=== PATIENT | female | born 1970 | race Caucasian/White ===

== ENCOUNTER 2016-12-04 23:21 | Emergency (ER) | payer BC ==
--- NOTE | 2016-12-05 00:10 | C.PDOC ---
History Of Present Illness <Jamison Serrato R - Last Filed: 12/05/16 01:13> <Brodie Meadows - Last Filed: 12/08/16 23:57> Patient is a 46 year old female who presents to the ER with a complaint of an acute episode of right facial droop, word finding difficulty and vertigo that lasted 5 minutes yesterday at 10 am while she was at work. Patient states the symptoms resolved themselves spontaneously and she resumed working. Patient has had mild vertigo since then. Patient denies a PMHx of HTN but does a Hx of polycythemia. Denies fever, chill, nausea or vomiting. (Brodie Meadows) <Jaimson Serrato R - Last Filed: 12/05/16 01:13> History Per: Patient History/Exam Limitations: no limitations Onset/Duration Of Symptoms: Mins Current Symptoms Are (Timing): Still Present Activity At Onset Of Symptoms: Other (At work) Possible Causative Factor(s): Other (Not known) Fall Associated With With Symptoms: No Recent travel outside of the [place]: No - Symptoms Of CVA Recent Aspirin Use: Unknown Current Coumadin Use?: Unknown <Brodie Meadows - Last Filed: 12/08/16 23:57> Time Seen by Provider: 12/04/16 23:49 Chief Complaint (Nursing): Dizziness/Lightheaded Past Medical History Reviewed: Historical Data, Nursing Documentation, Vital Signs - Medical History PMH: No Chronic Diseases Surgical History: No Surg Hx Family History: States: Unknown Family Hx - Social History Hx Alcohol Use: No Hx Substance Use: No <Brodie Meadows - Last Filed: 12/08/16 23:57> Vital Signs: Last Vital Signs Temp 97 F L 12/05/16 01:37 Pulse 92 H 12/05/16 01:37 Resp 20 12/05/16 01:37 BP 132/77 12/05/16 01:37 Pulse Ox 100 12/05/16 01:37 Review Of Systems Constitutional: Negative for: Fever, Chills Gastrointestinal: Negative for: Nausea, Vomiting Neurological: Positive for: Other (Right facial droop, difficulty word finding, vertigo) <Brodie Meadows - Last Filed: 12/08/16 23:57> Physical Exam - Physical Exam Appears: Well, Non-toxic, No Acute Distress Skin: Normal Color, Warm, Dry Head: Atraumatic, Normacephalic Eye(s): bilateral: Normal Inspection, PERRL, EOMI Oral Mucosa: Moist Neck: Normal, Supple Chest: Symmetrical, No Tenderness Cardiovascular: Rhythm Regular, No Murmur Respiratory: Normal Breath Sounds, No Rales, No Rhonchi, No Wheezing Gastrointestinal/Abdominal: Soft, No Tenderness Neurological/Psych: Oriented x3, Normal Speech, Normal Cognition, Normal Cranial Nerves, Normal Motor, Normal Sensation <Brodie Meadows - Last Filed: 12/08/16 23:57> ED Course And Treatment - Laboratory Results Result Diagrams: 12/05/16 00:18 12/05/16 00:18 <Jamison Serrato - Last Filed: 12/05/16 01:13> - Laboratory Results Result Diagrams: 12/05/16 00:18 12/05/16 00:18 Lab Interpretation: Abnormal (+ leukocytosis, + polycythemia) Urine POC: Negative ECG: Interpreted By Me ECG Rhythm: Sinus Rhythm ECG Interpretation: Normal Rate From EC O2 Sat by Pulse Oximetry: 98 (Room air) Pulse Ox Interpretation: Normal - CT Scan/US Ct head w/o contrast Other Rad Studies (CT/US): Read By Radiologist, Radiology Report Reviewed CT/US Interpretation: IMPRESSION: Normal head/brain CT. Progress Note: CT of head w/o contrast, EKG, blood work, CXR and urinalysis ordered. Trandate administered. Patient advised to stay for admission, refused to stay, will sign out AMA. Reevaluation Time: 00:38 Reassessment Condition: Improved (remains asymptomatic) <Brodie Meadows - Last Filed: 12/08/16 23:57> Medical Decision Making <Jamison Serrato - Last Filed: 12/05/16 01:13> <Brodie Meadows - Last Filed: 12/08/16 23:57> Medical Decision Making: consider sludging with h/o polycythemia or uncontrolled HTN Labetolol and IVF's given to start dilutional therapy consider theraputic phlebotomy. CT head pending tele obs overnight and MRI/Neuro consult in AM (Brodie Meadows) Disposition Counseled Patient/Family Regarding: Diagnosis - Disposition Disposition Time: 01:13 - POA Present On Arrival: None <Jamison Serrato - Last Filed: 12/05/16 01:13> <Brodie Meadows - Last Filed: 12/08/16 23:57> - Disposition Referrals: Florina Aguilar MD [Medical Doctor] - Disposition: AGAINST MEDICAL ADVICE Condition: STABLE Instructions: Transient Ischemic Attack (DC), Polycythemia Vera (GEN) - Clinical Impression Clinical Impression: TIA (transient ischemic attack), Polycythemia vera <Jamison Serrato - Last Filed: 12/05/16 01:13> - Scribe Statement The provider has reviewed the documentation as recorded by the Scribe <Brodie Meadows - Last Filed: 12/08/16 23:57> - Scribe Statement Marcos Bailon All medical record entries made by the Scribe were at my direction and personally dictated by me. I have reviewed the chart and agree that the record accurately reflects my personal performance of the history, physical exam, medical decision making, and the department course for this patient. I have also personally directed, reviewed, and agree with the discharge instructions and disposition. (Brodie Meadows)
[2016-12-05 00:29] LABS: CHLORIDE 97 mmol/L (98-107)
[2016-12-05 00:30] LABS: BASO # 0.1 K/uL (0.0-0.2); BASO % 0.6 % (0.0-2.0); EOS # 0.3 K/uL (0.0-0.7); EOS % 2.6 % (0.0-4.0); LYMPH # 2.2 K/uL (1.0-4.3); LYMPH % 17.2 % (20.0-40.0); MEAN CELL VOLUME 70.4 fL (81.0-99.0); MEAN CORPUSCULAR HEMOGLOBIN 22.9 pg (27.0-31.0); MEAN CORPUSCULAR HGB CONC 32.5 g/dL (33.0-37.0); MEAN PLATELET VOLUME 8.5 fL (7.2-11.7); MONO # 0.3 K/uL (0.0-0.8); MONO % 2.4 % (0.0-10.0); NRBC % 0.5 % (0.0-2.0); SODIUM 138 mmol/L (132-148); WHITE BLOOD COUNT 12.6 K/uL (4.8-10.8)
[2016-12-05 00:31] LABS: POTASSIUM 3.6 mmol/L (3.6-5.2)
[2016-12-05 00:32] LABS: RBC URINE 3 /hpf (0-3); URINE BACTERIA RARE (<OCC); URINE BILIRUBIN NEGATIVE (NEGATIVE); URINE BLOOD 2+ (NEGATIVE); URINE COLOR Straw (YELLOW); URINE GLUCOSE (UA) NORMAL (Normal); URINE KETONE NEGATIVE (NEGATIVE); URINE LEUKOCYTE ESTERASE NEG Leu/uL (Negative); URINE PROTEIN NEGATIVE (NEGATIVE); URINE UROBILINOGEN NORMAL mg/dL (0.2-1.0); WBC URINE 2 /hpf (0-5)
[2016-12-05 00:33] LABS: ALKALINE PHOSPHATASE 101 U/L (38-126); AST/SGOT 31 U/L (14-36); BLOOD UREA NITROGEN 18 mg/dL (7-17); CARBON DIOXIDE 30 mmol/L (22-30); CHOLESTEROL 117 mg/dL (0-199); GFR AFRICAN-AMERICAN > 60; GLUCOSE,RANDOM 94 mg/dL (65-105); TOTAL PROTEIN 8.5 g/dL (6.3-8.3)
[2016-12-05 00:34] LABS: ALB/GLOB RATIO 1.2 (1.0-2.1); ALT/SGPT 22 U/L (9-52); CALCIUM 9.2 mg/dl (8.6-10.4)
[2016-12-05 00:35] LABS: INR 1.3
[2016-12-05] MEDS ORDERED: Sodium Chloride 0.9% 1,000 ML IV ONE (00:36)
[2016-12-05 00:45] VITALS: RESP 20
[2016-12-05] MEDS ORDERED: Sodium Chloride 0.9% 1,000 ML ONE (00:47)
[2016-12-05 01:38] VITALS: BP 132/77; PULSE 92; TEMP 97
--- NOTE | 2016-12-05 11:19 | CT ---
PROCEDURE: CT HEAD WITHOUT CONTRAST. HISTORY: TIA today, R facial droop/vertigo, word finding COMPARISON: None available. TECHNIQUE: Axial computed tomography images were obtained through the head/brain without intravenous contrast. Radiation dose: Total exam DLP = 786.91 mGy-cm. This CT exam was performed using one or more of the following dose reduction techniques: Automated exposure control, adjustment of the mA and/or kV according to patient size, and/or use of iterative reconstruction technique. FINDINGS: HEMORRHAGE: No intracranial hemorrhage. BRAIN: No mass effect or edema. No atrophy or chronic microvascular ischemic changes. VENTRICLES: Unremarkable. No hydrocephalus. CALVARIUM: Unremarkable. PARANASAL SINUSES: Unremarkable as visualized. No significant inflammatory changes. MASTOID AIR CELLS: Unremarkable as visualized. No inflammatory changes. OTHER FINDINGS: None. IMPRESSION: No acute intracranial abnormalities. No significant findings to account for the clinical presentation. Concordant results (preliminary interpretation) provided by [facility]. Procedure Completed: 00:44 Preliminary ([facility]) Report: Dictated and Authenticated: 10:04. Final Interpretation: 11:17. December 05, 2016.
--- NOTE | 2016-12-05 12:28 | RAD ---
HISTORY: Admission. Portable study 00:35. COMPARISON: 10/27/2012. FINDINGS: LUNGS: No active pulmonary disease. PLEURA: No significant pleural effusion identified, no pneumothorax apparent. CARDIOVASCULAR: Normal. OSSEOUS STRUCTURES: No significant abnormalities. Thoracolumbar scoliosis. VISUALIZED UPPER ABDOMEN: Normal. OTHER FINDINGS: None. IMPRESSION: No active disease. No significant interval change compared to the prior examination(s).
--- NOTE | 2016-12-08 12:22 | CARD ---
APPROVED REPORT EKG Measurement Heart [id number] <Conclusion> Normal sinus rhythm Nonspecific T wave abnormality Abnormal ECG
[2016-12-08 23:58] VITALS: O2SAT 98
== END 2016-12-05 01:38 | disposition left against medical advice (07) ==
LOC: C.ER 23:21
DX: G45.9 Transient cerebral ischemic attack, unspecified (principal); D45 Polycythemia vera
CPT/HCPCS: 36415; 70450; 71010; 80053; 80061; 81001; 83036; 84484; 84703; 85025; 85610; 85730; 93005; 96360; 99285; J7040